=== PATIENT | female | born 1990 | race Caucasian/White ===

== ENCOUNTER 2016-09-29 22:50 | Inpatient (IN) | payer OTHER ==
[2016-09-29 23:22] VITALS: BMI 32.5
[2016-09-29] MEDS ORDERED: OXYTOCIN IN LR 500 ML IV ONE (23:42)
[2016-09-29] MEDS ORDERED: PENICILLIN G POTASSIUM 5 MMU in NS 0.9% (MINI-BAG PLUS) 100 ML IV ONE (23:42)
[2016-09-29] MEDS ORDERED: LACTATED RINGERS 1,000 ML IV SCH (23:45)
[2016-09-29] MEDS ORDERED: OXYTOCIN 10 UNITS/ML VIAL ONE (23:56)
[2016-09-29] MEDS ORDERED: PUMP TUBING ONE (23:56)
[2016-09-29] MEDS ORDERED: MINERAL OIL 25 ML BOT ONE (23:56)
[2016-09-29] MEDS ORDERED: LIDOCAINE Viscous 2% 15 ML UDCUP ONE (23:56)
[2016-09-29] MEDS ORDERED: IV START KIT ONE (23:56)
[2016-09-29] MEDS ORDERED: LIDOCAINE 1% (PRES FREE) 30 ML VIAL ONE (23:56)
[2016-09-30] MEDS ORDERED: PENICILLIN G POTASSIUM 5 MMU VIAL ONE (00:02)
[2016-09-30] MEDS ORDERED: NS 0.9% (MINI-BAG PLUS) 100 ML IV ONE (00:03)
[2016-09-30] MEDS: LACTATED RINGERS 1,000 ML IV PRN ×4 (00:39→15:50)
[2016-09-30 00:58] LABS: HEMATOCRIT 39.1 % (37.0-47.0); MEAN CELL VOLUME 93.1 fl (81.0-99.0); MEAN CORPUSCULAR HGB CONC 33.2 g/dl (33.0-37.0); RED CELL DISTRIBUTION WIDTH 12.9 % (11.5-14.5)
[2016-09-30] MEDS ORDERED: BUTORPHANOL TARTRATE 1 MG/ML VIAL ONE (02:14)
[2016-09-30] MEDS: BUTORPHANOL TARTRATE 1 MG/ML VIAL IV PRN ×2 (02:17→05:01)
[2016-09-30] MEDS ORDERED: PENICILLIN G 3 MIL UNIT PREMIX 50 ML IV ONE ×4 (03:59→15:44)
[2016-09-30] MEDS: PENICILLIN G 3 MIL UNIT PREMIX 3 MMU in Premix (D5W) 50 ml 1 EACH IV SCH ×4 (04:07→16:00)
--- NOTE | 2016-09-30 08:54 | PCMAN ---
OB Admission Note - History : 1 Term: 0 : 0 Abortions (S&E): 0 Livin Gestational Age (weeks): 39 (Based on good dates and a US at 6 wks that was consistent.) Days (#/7): 4 Admit Cervical Dilation:: 4 Admit Cervical Effacement (%):: 90 Admit Station:: -2 Admit Presentaton:: cephalic Membrane Status: Intact Labor Onset (Date): 09/29/16 Labor Onset (Time): 22:00 Contractions: Yes Contraction Frequency:: q 5-6min Heart Rate:: 130 (category 1, intermittent auscultation) Status:: good EFW:: 7.5lbs - Labs Blood Type: A (+) positive Hct/Hgb:: 39% Rubella Status: Non-immune GBS Status: Positive Abnormal Labs: None Other Labs:: 1H GTT 85 Normal BP's through out the . Weight gain of approx 50lbs. - Review of Systems Pt has severe eczema, mostly above the waist. Allergies to many foods, especially fruits and veggies. - Physical Exam General: Mild Distress (during contractions, but relaxed in between.) Psych/Mental Status: Mood/Affect Appropriate Neurological: Oriented x 4, Normal Speech Lungs: Clear to Auscultation Bilaterally Cardiovascular: Regular Rate and Rhythm Genitourinary: Normal Female Genitalia Skin: Normal Color, Warm, Dry - Problems (1) Active labor at term Status: Acute Code: [id number] Assessment/Plan: GBS positive, on prophylaxis. - Additional Comments Pt able to rest some after dose of stadol. Now feeling contractions more. She will have some light breakfast, then get up walking. She is planning for an epidural.
[2016-09-30] MEDS ORDERED: FENTANYL/ROPIVACAINE EPIDURAL 250 ML EP ONE (11:54)
[2016-09-30] MEDS ORDERED: EPIDURAL PUMP SET ONE (11:54)
[2016-09-30] MEDS ORDERED: DIPHENHYDRAMINE HCL 50 MG/1 ML VIAL IV PRN (13:20)
[2016-09-30] MEDS ORDERED: ONDANSETRON 4 MG/2ML 2 ML VIAL IV PRN (13:20)
[2016-09-30] MEDS ORDERED: LACTATED RINGERS 500 ML IV PRN (13:20)
[2016-09-30] MEDS ORDERED: METOCLOPRAMIDE HCL 5 MG/ML 2ML VIAL IV PRN (13:20)
[2016-09-30] MEDS ORDERED: EPHEDRINE SULFATE 50 MG/ML 1ML VIAL IV PRN (13:20)
[2016-09-30] MEDS ORDERED: NALOXONE HCL 0.4 MG/ML VIAL IV PRN (13:20)
[2016-09-30] MEDS: FENTANYL/ROPIVACAINE EPIDURAL 250 ML EP SCH (13:20)
[2016-09-30] MEDS ORDERED: NALBUPHINE HCL 20 MG/ML AMP IV PRN (13:20)
[2016-09-30] MEDS ORDERED: SODIUM CHLORIDE 0.9% 500 ML IV PRN (13:20)
[2016-09-30] MEDS ORDERED: EPIDURAL PROCEDURE TRAY ONE (13:28)
[2016-09-30] MEDS ORDERED: ROPIVACAINE 0.5% 30 ML VIAL ONE (13:28)
[2016-09-30] MEDS ORDERED: LACTATED RINGERS 1,000 ML IV SCH (15:00)
[2016-09-30] MEDS: OXYTOCIN IN LR 500 ML IV PRN ×3 (15:06→17:07)
--- NOTE | 2016-09-30 19:08 | PDOC36 ---
Provider Note Subject: Active labor Note: Pt is feeling these contrx low and in front, much more severe Exam by RN shows 5cm, with vertex -2. Contrx still irregular but lasting longer. Imp: Active labor Plan: Epidural narcotics by pt request Then re-eval for AROM or pitocin if needed.
--- NOTE | 2016-09-30 19:08 | PDOC36 ---
Provider Note Subject: Progress Note: Pt mostly comfortable but feeling some pressure. Exam: FH category 1, pitocin at 5 mu/mn Contractions still a bit irreg, but longer VE cervix 9cm, very stretchy, vertex 0 station, ?position AROM occurred during the exam as bulging bag was manipulated Thick old meconium noted in fluid. Imp: Excellent progress Plan: Allow passive descent as long as pt is comfortable. Re-eval in 1 hour.
[2016-09-30] MEDS ORDERED: OXYCODONE HCL 5 MG TABLET PO PRN (21:22)
[2016-09-30] MEDS ORDERED: DOCUSATE SODIUM 100 MG CAPSULE PO PRN (21:22)
[2016-09-30] MEDS ORDERED: LACTATED RINGERS 1,000 ML IV PRN (21:22)
[2016-09-30] MEDS ORDERED: ACETAMINOPHEN 325 MG TABLET PO PRN (21:22)
[2016-09-30] MEDS ORDERED: MAGNESIUM HYDROXIDE 30 ML UDCUP PO PRN (21:22)
[2016-09-30] MEDS ORDERED: CALCIUM CARBONATE 500 MG TAB.CHEW PO PRN (21:22)
[2016-09-30] MEDS ORDERED: MEASLES,MUMPS&RUBELLA VACCINE 0.5 ML VIAL SUB-Q V ONE (21:22)
[2016-09-30] MEDS ORDERED: IBUPROFEN 800 MG TABLET PO PRN (21:22)
[2016-09-30] MEDS ORDERED: BENZOCAINE/MENTHOL 60 APPLIC/BOT TP PRN (21:22)
[2016-09-30] MEDS ORDERED: OXYCODONE/ACETAMINOPHEN 5/325 MG TABLET PO PRN (21:22)
[2016-09-30] MEDS ORDERED: LANOLIN 50 APPLIC/7G TUBE TP PRN (21:22)
[2016-09-30] MEDS ORDERED: SENNOSIDES 8.6 MG TABLET PO PRN (21:22)
[2016-09-30] MEDS ORDERED: DIPHTH,PERTUSS(ACELL),TET VAC 0.5 ML VIAL IM V ONE (21:22)
--- NOTE | 2016-09-30 22:56 | PCMDEL ---
Delivery Note - Labor 1st stage (hr/min):: [id number] approx 2nd stage (hr/min):: 1h 3rd stage (hr/min):: 10min Total (hr/min):: [id number] approx Pushed (hr/min):: 1 hour - Delivery Delivery (Date): 09/30/16 Delivery (Time): 19:39 Infant Gender: Male Weight: 9 lb 6 oz Length: 1 ft 10 in Presentation: Cephalic Position: OA Umbilical Cord: 3 Vessel, Nuchal Cord (tight over shoulders but reduced off the shoulder as ant shoulder delivered.) Delayed Cord Clamping:: > 3 min 1 Minute Total: 8 5 Minute Total: 9 Placenta:: complete with 1 push EBL:: 300cc Perineum:: small post perineal tear, first degree. left labial tear Suture:: both repaired with 3.0 chromic Anesthesia/Meds:: epidural and 1% lidocaine Length ROM:: 2 hours Comments:: Pt received GBS prophylaxis. She had an epidural placed when labor became more severe. AROM showed meconium, but FH always category. She progressed well to full dilation; passive descent for approx 1 hour, then pushing well for 1 hour. Progressive of head with minimal molding. Spontaneous vag OA then restituted to SEGUNDO, tight shoulder followed by tight torso. Baby boy had good tone and was placed on maternal abdomen, dried and evaluated. Within first minute he cried well. Mother and baby boy did well in period.
[2016-09-30] MEDS ORDERED: LIDOCAINE 1% (PRES FREE) 30 ML VIAL SUB-Q ONE (23:06)
[2016-10-01] MEDS: LACTATED RINGERS 1,000 ML IV SCH ×2 (06:57→06:58)
[2016-10-01] MEDS: PENICILLIN G 3 MIL UNIT PREMIX 3 MMU in Premix (D5W) 50 ml 1 EACH IV SCH (06:58)
[2016-10-01] MEDS: FENTANYL/ROPIVACAINE EPIDURAL 250 ML EP SCH (07:00)
[2016-10-01 07:19] LABS: HEMATOCRIT 28.3 % (37.0-47.0); HEMOGLOBIN 9.4 gm/l (12.0-16.0)
--- NOTE | 2016-10-01 08:19 | PDOC44 ---
- Subjective Day: 1 Reports Flatus, Reports Pain Tolerable, Reports , Reports Lochia Light - Objective Temp Pulse Resp BP Pulse Ox 98.0 F 83 20 117/62 10/01/16 07:23 10/01/16 07:23 10/01/16 07:23 10/01/16 07:23 Lab Results 10/01/16 06:34 Hgb 9.4 L D Hct 28.3 L Current Medications Generic Name Dose Route Start Last Admin Trade Name Freq PRN Reason Stop Dose Admin Acetaminophen 325 - 650 mg 09/30/16 21:22 Tylenol PO Q4H PRN Pain (Mild) Benzocaine/Menthol 1 applic 09/30/16 21:22 Dermoplast TP PRN PRN Patient Comfort Calcium Carbonate/Glycine 500 - 1,000 mg 09/30/16 21:22 Tums PO BID PRN Indigestion Docusate Sodium 100 mg 09/30/16 21:22 Colace PO DAILY PRN Comfort Emollient Ointment 1 applic 09/30/16 21:22 [id number] TP PRN PRN sore nipples Ropivacaine/Fentanyl/NS 250 mls @ 0 mls/hr 10/01/16 06:00 10/01/16 07:00 Fentanyl 2 Mcg/Ml + Ropivacaine 0.125% Ep Bag EP Not Given EPI AP Protocol Per Protocol Lactated Ringer's 1,000 mls @ 100 mls/hr 09/30/16 21:22 Lactated Ringers IV .Q10H PRN Titrate per clinical situation Ibuprofen 800 mg 09/30/16 21:22 Motrin PO Q6H PRN Pain (Mild) Magnesium Hydroxide 30 ml 09/30/16 21:22 Milk Of Magnesia PO BEDTIME PRN Constipation Oxycodone HCl 5 - 10 mg 09/30/16 21:22 Roxicodone PO Q3H PRN Pain (Severe) Oxycodone/Acetaminophen 1 - 2 tab 09/30/16 21:22 Percocet 5/325 PO Q4H PRN Pain (Moderate) Senna 17.2 mg 09/30/16 21:22 Senokot PO BEDTIME PRN Comfort Sodium Chloride 10 ml 09/30/16 21:22 Normal Saline 10ml Flush IV PRN PRN IV Flush - Physical Exam Fundus: Firm, Below Umbilicus Abdomen: No Tenderness, No Distention Disposition: Stable, Anticipate DC Home Tomorrow (regular care)
[2016-10-01] MEDS ORDERED: LACTATED RINGERS 1,000 ML ONE (14:51)
[2016-10-01] MEDS ORDERED: IV START KIT ONE (14:51)
--- NOTE | 2016-10-02 06:52 | PDOC39B ---
Hospital Course: ADMIT DATE: 09/29/16 DISCHARGE DATE: 10/02/16 ADMISSION DIAGNOSES: intrauterine at 39.4 weeks, labor. group b strep positive PROCEDURES: spontaneous vaginal delivery, gbs prophylaxis, repair of left labial laceration and first degree perineal laceration HISTORY OF PRESENT ILLNESS: 25 year old G1 T0 L0 at 39 weeks 4 days presenting with spontaneous onset of labor HOSPITAL COURSE: The patient had an uneventful post course. By day of discharge the patient is ambulating, eating, voiding, and passing flatus without difficulty. Pain is controlled and lochia is appropriate. She is [] - Physical Exam Vital Signs: Temp Pulse Resp BP Pulse Ox 98.3 F 77 16 117/71 10/02/16 02:23 10/02/16 02:23 10/02/16 02:23 10/02/16 02:23 General: Afebrile, No Acute Distress Psych/Mental Status: Mood/Affect Appropriate, Judgment/Insight Intact, Bonding Well Breast: Soft, Skin intact, Nipples Intact, No Tenderness, No Erythema, No Engorged Fundus: Firm, Midline, At Umbilicus, Other (nontender) Genitourinary: Other (voiding without problems) Lochia: Light Extremities: No Tenderness - Discharge Diagnosis (1) Group B streptococcal infection during Status: Resolved (2) Anemia, Status: Acute (3) Perineal laceration of labia Status: Acute - Discharge Plan Condition: Stable Disposition: Home Additional Instructions: nothing in vagina x 6 weeks, office visit [address] veloz. may take tylenol or motrin if needed (patient declined rx for analgesics).
--- NOTE | 2016-10-02 06:55 | PDOC36 ---
Provider Note Note: ob note: iron supplementation rx generated for patient on discharge.
[2016-10-02 08:44] VITALS: BP 126/77
[2016-10-02] MEDS ORDERED: FERROUS SULFATE (65 Fe) 325 MG TABLET PO SCH (09:00)
== END 2016-10-02 11:56 | disposition home or self-care (01) | DRG 775 ==
LOC: FBCOUT 22:50 → FBC 22:50 → FBCOUT 23:44
PROVIDERS: ADMIT Obstetrics & Gynecology; ATTEND Obstetrics & Gynecology
PROC: 10E0XZZ Delivery of Products of Conception, External Approach (ICD-10-PCS; principal; 2016-09-30)
PROC: 0UQM0ZZ Repair Vulva, Open Approach (ICD-10-PCS; 2016-09-30)
PROC: 10907ZC Drainage of Amniotic Fluid, Therapeutic from Products of Conception, Via Natural or Artificial Opening (ICD-10-PCS; 2016-09-30)
PROC: 00HU33Z Insertion of Infusion Device into Spinal Canal, Percutaneous Approach (ICD-10-PCS; 2016-09-30)
PROC: 0HQ9XZZ Repair Perineum Skin, External Approach (ICD-10-PCS; 2016-09-30)
PROC: 3E0234Z Introduction of Serum, Toxoid and Vaccine into Muscle, Percutaneous Approach (ICD-10-PCS; 2016-10-02)
DX: O99.824 Streptococcus B carrier state complicating childbirth (principal); O77.0 Labor and delivery complicated by meconium in amniotic fluid; O75.89 Other specified complications of labor and delivery; L30.9 Dermatitis, unspecified; O69.81X0 Labor and delivery complicated by cord around neck, without compression, not applicable or unspecified; O70.0 First degree perineal laceration during delivery; O90.81 Anemia of the puerperium; Z23 Encounter for immunization; Z3A.39 39 weeks gestation of pregnancy; Z37.0 Single live birth